=== PATIENT | female | born 1970 ===

== ENCOUNTER → 2017-11-13 17:38 | Outpatient (CLI) | payer BC, SELFPAY ==
--- NOTE | 2017-11-13 | DI.MRI.S_ITS ---
PROCEDURE: MR KNEE LT WO CON INDICATIONS: MEDIAL LEFT KNEE PAIN POST INJURY 2 YEARS AGO TECHNIQUE: Noncontrast sagittal PD fast spin echo and T2 fast spin echo with fat saturation, sagittal 3-D FLASH with fat saturation; coronal T1 spin echo and PD fast spin echo with fat saturation, and axial PD fast spin echo with fat saturation through the knee. COMPARISON: None. FINDINGS: Image quality: Excellent. Menisci: The medial and lateral menisci demonstrate normal morphology and internal signal. The meniscal root ligaments appear intact. Cruciate ligaments: The anterior and posterior cruciate ligaments appear intact. Medial structures: The medial collateral ligament appears intact. The posterior oblique ligament, semimembranosus tendon insertions, oblique popliteal ligament, and meniscocapsular junction appear intact. Visualized portions of the pes anserinus tendons appear normal. No abnormal bursal fluid. Lateral structures: The lateral collateral ligament, long and short heads of the biceps femoris tendon appear intact. The popliteus tendon appears normal; the popliteofibular ligament appears intact. The posterosuperior and anteroinferior popliteomeniscal fascicles appear intact. The arcuate and fabellofibular ligaments appear intact, on either side of the lateral inferior geniculate artery. Iliotibial band appears normal. Anterior structures: The quadriceps tendon appears intact. There is minimal proximal patellar tendinopathy. Patellar alignment is normal. No femoral trochlear dysplasia or ventral trochlear prominence. No edema in the infrapatellar fat pad. Bones and cartilage: No bone marrow contusions or fractures. Within the medial and lateral compartments, no focal articular cartilage defect is seen. Within the patellofemoral compartment, there is partial thickness fissuring and surface fraying involving the cartilage overlying the median patellar ridge as well as mild thickening and intrasubstance signal change of the central femoral trochlear cartilage. There is mild underlying marrow edema in the femoral trochlea. Joint space: There is physiologic knee joint fluid. No Mosley's cyst. 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 Mild proximal patellar tendinopathy. Dictated by: Junior Gil M.D. on 11/16/2017 at 8:37 Approved by: Junior Gil M.D. on 11/16/2017 at 8:45
== END ==
PROVIDERS: Visit Provider Orthopaedic Surgery
DX: M25.562 Pain in left knee (principal); M22.42 Chondromalacia patellae, left knee
CPT/HCPCS: 73721